=== PATIENT | male | born 1985 | race Caucasian/White ===

== ENCOUNTER 2024-06-08 14:20 | Emergency (ER) | payer MEDICAID, SELFPAY ==
[2024-06-08 15:05] VITALS: BP 115/71; PULSE 89; RESP 18; TEMP 36.6; O2SAT 99; BMI 28.8
--- NOTE | 2024-06-08 16:08 | EDNOTE_ITS ---
ED Skin Abcess FB-RME/HPI General Chief complaint: Skin/Abscess/Foreign Body Stated complaint: FEVER, CELLULITIS TO THE RIGHT FACE Time Seen by Provider: 06/08/24 14:35 Arrival date/time: 06/08/24 14:20 39-year-old male presents the emergency department today complains of right- sided facial cellulitis patient reports been on Keflex for last couple of days without improvement. Patient reports that his rash to his scalp about the right eye and forehead and behind his right ear. There are no other associated symptoms or aggravating factors no other modifying factors, patient denies taking medication before coming to ER today Limitations: no limitations Related Data Previous Rx's ?Medication ?Instructions ?Recorded clindamycin HCl 150 mg capsule 450 mg (3 x 150 mg) PO TID 7 days 06/08/24 #63 caps ibuprofen 800 mg tablet 800 mg PO TID PRN pain #30 tabs 06/08/24 Allergies Allergy/AdvReac Type Severity Reaction Status Date / Time No Known Allergies Allergy Verified 06/08/24 14:25 Review of Systems Review of Systems Systems Reviewed: All systems reviewed, normal except as documented Constitutional Constitutional: Reports system reviewed and no additional complaints, except as documented, Denies fever(s) and Denies headache(s) Eyes Eyes: Reports system reviewed and no additional complaints, except as documented and Denies blurry vision ENT Ears, Nose, Mouth, and Throat: Reports system reviewed and no additional complaints, except as documented, Denies headache(s), Denies nasal congestion and Denies nasal discharge Cardiovascular Cardiovascular: Reports system reviewed and no additional complaints, except as documented, Denies chest pain and Denies dyspnea Respiratory Respiratory: Reports system reviewed and no additional complaints, except as documented, Denies chest congestion, Denies cough and Denies dyspnea Gastrointestinal Gastrointestinal: Reports system reviewed and no additional complaints, except as documented and Denies abdominal pain Integumentary/Breasts Skin/Breast: Reports system reviewed and no additional complaints, except as documented and Denies rash Neurologic Neurologic: Reports system reviewed and no additional complaints, except as documented, Reports as per HPI and Denies headache(s) Past Medical History Social History SMOKING STATUS: Current every day smoker ED Exam General Limitations: Present no limitations General appearance: Present alert and in no apparent distress Head Head exam: Present atraumatic, normocephalic and normal inspection Eye Eye exam: Present PERRL, EOMI, periorbital swelling (Upper eyelid swelling noncircumferential) and periorbital tenderness; Absent conjunctival injection ENT ENT exam: Present normal exam, normal oropharynx and mucous membranes moist Neck Neck exam: Present normal inspection, full ROM and trachea midline Chest Chest inspection: Present normal inspection and symmetric chest wall rise Respiratory Respiratory exam: Present normal lung sounds bilaterally; Absent respiratory distress, wheezes, stridor or accessory muscle use Cardiovascular Cardiovascular exam: Present regular rate, normal rhythm and normal heart sounds Abdominal Exam Abdominal exam: Present soft and normal bowel sounds; Absent distention, tenderness, guarding, rebound or rigidity Extremities Exam Extremities exam: Present normal inspection and full ROM Back Exam Back exam: Present normal inspection and full ROM Neurological Exam Neurological exam: Present alert, oriented X3, CN II-XII intact, normal gait and reflexes normal; Absent motor sensory deficit Psychiatric Psychiatric exam: Present normal affect and normal mood Skin Skin exam: Present warm, dry, rash and other (Skin irritation/rash right side of face head and neck) Course Quality Measures none Vital Signs Vital signs: Vital Signs Temperature 98 F 06/08/24 15:05 Pulse Rate 89 06/08/24 15:05 Respiratory Rate 18 06/08/24 15:05 Blood Pressure 115/71 06/08/24 15:05 Pulse Oximetry (%) 99 06/08/24 15:05 Oxygen Delivery Method Room Air 06/08/24 15:05 O2 saturation 99% room air wnl Skin / Abscess / Foreign Body MDM Narrative MDM Narrative:: 39-year-old male presents the emergency department today complains of right- sided facial cellulitis patient reports been on Keflex for last couple of days without improvement. Patient reports that his rash to his scalp about the right eye and forehead and behind his right ear. There are no other associated symptoms or aggravating factors no other modifying factors, patient denies taking medication before coming to ER today On exam patient's rash is not vesicular On exam patient does not have circumferential swelling around the right eye but does have swelling of the right upper eyelid and rash to right side of his forehead scalp and behind the right ear Consultation: I asked my attending physician to come evaluate the patient he did not feel this was shingles as rash is not vesicular patient will be treated with antibiotics and not antivirals Patient switched to clindamycin in case there is the beginning stages of periorbital cellulitis I explained to the patient that if symptoms persist or worsen he has to return to the ER for further evaluation possible CT scan and IV Patient states understanding Patient data External records reviewed:: [facility] previous records Clinical information provided by:: patient Social determinants that could affect healthcare access:: none Patient has the following chronic illnesses:: none How is presenting disease/condition affected by chronic disease/condition?: no chronic disease Evaluation data The following diagnostics were reviewed and interpreted by me:: other (specify) (n.a ) Lab and/or radiology exams considered but not ordered:: n/a Interpretation Summary: Consider not ordered Medications / Prescriptions Medications or Prescriptions considered but not ordered:: given Medication administrations:: given Consultations Consultation(s) initiated? (list below): No Diagnosis Skin/Abscess Differential Diagnosis: abscess of skin or subcutaneous tissue, allergic reaction to drug, cellulitis and contact dermatitis Most likely diagnosis given after review of the tests above:: cellulitis Admission Indicated Admission indicated?: not indicated Admission Request Was there a request for admission?: No Disposition Plan Disposition Plan: Discharge Discharge Attestation Discharge Attestation: The patient and all family members were given an opportunity to ask questions and understood the discharge instructions. Discharge instructions specifically effects, indications for sooner follow up or return to the emergency department, and the expected course of current diagnosis. Patient condition: Stable Discharge Plan Plan Patient Disposition: HOME (Self Care) Disposition Comment: Stable Prescriptions/Referrals Prescriptions/Med Rec: New ibuprofen 800 mg tablet 800 mg PO TID PRN (Reason: pain) Qty: 30 0RF clindamycin HCl 150 mg capsule 450 mg PO TID 7 Days Qty: 63 0RF Problem List Clinical Impression: Cellulitis of face Patient/Caregiver Discharge Instructions Education Materials: ED Cellulitis, Facial Additional Instructions: Please follow up with your primary care doctor in the next 24-48hrs for any worsening symptoms return here immediately Print Language: Vietnamese Stand Alone Forms: Vilma Award Info., Work/School Release, Patient Portal Info Letter PA/[employer] Supervising Physician PA/RICHARD Supervising Physician: Dr Beauchamp
== END 2024-06-08 16:23 | disposition home or self-care (01) ==
LOC: SERX 16:42
PROVIDERS: Emergency Provider Emergency Medicine
DX: L03.211 Cellulitis of face (principal)
CPT/HCPCS: 99281